=== PATIENT | male | born 1985 | race African-American/Black ===

== ENCOUNTER 2018-12-30 11:52 | Emergency (ER) | payer BC, OTHER ==
[2018-12-30] MEDS ORDERED: ASPIRIN 81 MG CHEWABLE TABLET ONE (12:54)
[2018-12-30] MEDS ORDERED: LORAZEPAM 1 MG TABLET ONE (12:55)
[2018-12-30 13:08] LABS: Hematocrit 42.7 % (39.6-49.0); Lymphocytes % 32.1 % (15.3-44.8); MPV 8.9 fL (7.6-11.3); RBC Red Blood Cell Count 4.81 M/uL (4.33-5.43)
[2018-12-30 13:21] LABS: Protime INR 0.96
[2018-12-30 13:33] LABS: ALT/SGPT 28 U/L (12-78); AST/SGOT 14 U/L (15-37); Albumin 4.2 g/dL (3.4-5.0); Alkaline Phosphatase 74 U/L (45-117); BUN Blood Urea Nitrogen 13 mg/dL (7-18); Bicarbonate 29 mmol/L (21-32); Bilirubin Direct 0.1 mg/dL (0-0.2); Bilirubin Total 0.6 mg/dL (0.2-1.0); Glucose Level 79 mg/dL (74-106); NT PRO-BNP 19 pg/mL (<125); Potassium 3.9 mmol/L (3.5-5.1); Protein, Total 7.7 g/dL (6.4-8.2); Sodium Level 141 mmol/L (136-145); Troponin (Emerg Dept Use Only) < 0.02 ng/mL (0.0-0.045)
--- NOTE | 2018-12-30 15:24 | RAD REPORT ---
EXAM DESCRIPTION: Subha Single View12/30/2018 12:37 pm CLINICAL HISTORY: Chest pain COMPARISON: None FINDINGS: The lungs appear clear of acute infiltrate. The heart is normal size Postsurgical changes involve the chest. IMPRESSION: No acute abnormalities displayed
--- NOTE | 2018-12-30 15:45 | ER ---
Nurse's Notes [facility] Name: Steve Maher Jr Age: 33 yrs Sex: Male : 1985 Arrival Date: 12/30/2018 Time: 11:56 Bed 16 Private MD: Diagnosis: Chest pain, unspecified Presentation: 12/30 12:15 Presenting complaint: Patient states: I have been having chest pain that radiates to ca1 the back for 2 days now. 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 When I was 21 during a routine check up they found out that I had a defect, an artery that was out of place. Denies N/V. Transition of care: patient was not received from another setting of care. Onset of symptoms was December 28, 2018. Risk Assessment: Do you want to hurt yourself or someone else? Patient reports no desire to harm self or others. Initial Sepsis Screen: Does the patient meet any 2 criteria? HR > 90 bpm. Does the patient have a suspected source of infection? No. Patient's initial sepsis screen is negative. Care prior to arrival: None. 12:15 Method Of Arrival: Wheelchair ca1 12:15 Acuity: VERÓNICA 3 ca1 Triage Assessment: 12:45 General: Appears in no apparent distress. comfortable, Behavior is calm, cooperative, ca1 appropriate for age. Pain: Complains of pain in mid-sternal area Pain radiates to back Pain currently is 3 out of 10 on a pain scale. at worst was 7 out of 10 on a pain scale. Quality of pain is described as tightness Pain began 2-3 days ago. Is intermittent. Cardiovascular: Heart tones S1 S2 present Capillary refill < 3 seconds Patient's skin is warm and dry. Pulses Rhythm is sinus rhythm. Historical: - Allergies: 12:45 PENICILLINS; ca1 - Home Meds: 12:45 None [Active]; ca1 - PMHx: 12:45 None; ca1 - PSHx: 12:45 CABG; ca1 - Immunization history:: Adult Immunizations not up to date. - Social history:: Smoking status: Patient uses tobacco products, denies chronic smoking, but will smoke occasionally. - Ebola Screening: : Patient negative for fever greater than or equal to 101.5 degrees Fahrenheit, and additional compatible Ebola Virus Disease symptoms Patient denies exposure to infectious person Patient denies travel to an Ebola-affected area in the 21 days before illness onset No symptoms or risks identified at this time. Screenin:47 Abuse screen: Denies threats or abuse. Denies injuries from another. Nutritional ca1 screening: No deficits noted. Tuberculosis screening: No symptoms or risk factors identified. Fall Risk IV access (20 points). Assessment: 12:20 General: Appears in no apparent distress. comfortable, Behavior is calm, cooperative, ca1 appropriate for age. Pain: Complains of pain in mid-sternal area and chest Pain radiates to back Pain currently is 3 out of 10 on a pain scale. at worst was 7 out of 10 on a pain scale. Quality of pain is described as tightness Pain began 2-3 days ago. Is intermittent. Neuro: Level of Consciousness is awake, alert, obeys commands, Oriented to person, place, time, situation, Appropriate for age. Cardiovascular: Heart tones S1 S2 present Capillary refill < 3 seconds Patient's skin is warm and dry. Pulses Rhythm is sinus rhythm. Respiratory: Airway is patent Respiratory effort is even, unlabored, Respiratory pattern is regular, symmetrical, Breath sounds are clear bilaterally. GI: Abdomen is flat, non-distended, Bowel sounds present X 4 quads. Abd is soft and non tender X 4 quads. Patient currently denies nausea, vomiting. : No deficits noted. No signs and/or symptoms were reported regarding the genitourinary system. EENT: No deficits noted. No signs and/or symptoms were reported regarding the EENT system. Derm: Skin is intact, is healthy with good turgor, Skin is pink, warm \T\ dry. Musculoskeletal: Circulation, motion, and sensation intact. Capillary refill < 3 seconds, Range of motion: intact in all extremities. 13:28 Reassessment: Patient appears in no apparent distress at this time. Patient and/or ca1 family updated on plan of care and expected duration. Pain level reassessed. Patient is alert, oriented x 3, equal unlabored respirations, skin warm/dry/pink. 14:10 Reassessment: Patient appears in no apparent distress at this time. Patient is alert, ca1 oriented x 3, equal unlabored respirations, skin warm/dry/pink. 15:05 Reassessment: Patient appears in no apparent distress at this time. Patient and/or ca1 family updated on plan of care and expected duration. Pain level reassessed. Patient is alert, oriented x 3, equal unlabored respirations, skin warm/dry/pink. Repeat EKG and Trop done. Awaiting result. 15:44 Reassessment: Patient appears in no apparent distress at this time. Patient is alert, ca1 oriented x 3, equal unlabored respirations, skin warm/dry/pink. Vital Signs: 12:25 BP 138 / 84; Pulse 66; Resp 16; Temp 98.3(TE); Pulse Ox 100% ; lt1 12:45 Weight 97.52 kg (R); Height 6 ft. 5 in. (195.58 cm) (R); Pain 7/10; ca1 13:00 BP 151 / 85; Pulse 75; Resp 14 S; Pulse Ox 98% on R/A; ca1 13:30 BP 151 / 102; Pulse 70; Resp 19 S; Pulse Ox 100% on R/A; ca1 14:10 BP 128 / 81; Pulse 61; Resp 17 S; Pulse Ox 100% on R/A; ca1 15:05 BP 135 / 82; Pulse 60; Resp 55; Temp 98(O); Pulse Ox 100% ; ca1 15:44 BP 129 / 85; Pulse 62; Resp 15 S; Pulse Ox 100% on R/A; ca1 12:45 Body Mass Index 25.50 (97.52 kg, 195.58 cm) ca1 ED Course: 11:56 Patient arrived in ED. mr 12:01 [facility] Hansen [facility]-C [facility] snw 12:01 Hugh Mendes MD is Attending Physician. snw 12:24 Ghislaine Roy, MIGUELITO is Primary Nurse. ca1 12:39 XRAY Chest (1 view) In Process Unspecified. EDMS 12:44 Triage completed. ca1 12:45 Arm band placed on right wrist. EKG completed in triage. Results shown to MD. ca1 12:47 Patient has correct armband on for positive identification. Placed in gown. Bed in low ca1 position. Call light in reach. Side rails up X 1. monitoring coordinator on. Pulse ox on. NIBP on. Warm blanket given. 12:47 No provider procedures requiring assistance completed. Missed attempt(s): 20 gauge in ca1 left antecubital area. Bleeding controlled, band aid applied, catheter tip intact. Patient maintains SpO2 saturation greater than 95% on room air. 12:54 Initial lab(s) drawn, by me, sent to lab. Inserted saline lock: 22 gauge in right lt1 antecubital area, using aseptic technique. 16:01 IV discontinued, intact, bleeding controlled, No redness/swelling at site. Pressure ca1 dressing applied. Administered Medications: 12:25 Drug: Aspirin Chewable Tablet 324 mg Route: PO; ca1 14:19 Follow up: Response: No adverse reaction; Pain is decreased ca1 12:25 Drug: Ativan 1 mg Route: PO; ca1 14:20 Follow up: Response: No adverse reaction ca1 Outcome: 15:44 Discharge ordered by MD. almazan 16:01 Discharged to home ambulatory. ca1 16:01 Condition: stable 16:01 Discharge instructions given to patient, Instructed on discharge instructions, follow up and referral plans. medication usage, Demonstrated understanding of instructions, follow-up care, medications, Prescriptions given X 1. 16:01 Patient left the ED. ca1 Signatures: Dispatcher [employer] EDMS Yana Hansen, BR[employer] BUSINESS OPERATIONS COORDINATOR-Patito Puente Cheryl, RN RN ca1 Yessenia Olmstead lt1 Corrections: (The following items were deleted from the chart) 15:42 15:05 BP 135 / 82; Pulse 13bpm; Resp 55bpm; Pulse Ox 100%; Temp 98F Oral; ca1 ca1
--- NOTE | 2018-12-30 15:46 | EDPHYS ---
Physician Documentation [facility] Name: Steve Maher Jr Age: 33 yrs Sex: Male : 1985 Arrival Date: 12/30/2018 Time: 11:56 Bed 16 Private MD: MERLIN Physician Hugh Mendes HPI: 12/30 12:50 This 33 yrs old Black Male presents to ER via Wheelchair with complaints of Chest Pain. snw 12:50 The patient or guardian reports chest pain that is located primarily in the anterior snw chest wall, bilaterally. The pain does not radiate. Associated signs and symptoms: The patient has no apparent associated signs or symptoms. The chest pain is described as squeezing. Duration: The patient or guardian reports multiple episodes. Modifying factors: The symptoms are alleviated by nothing. the symptoms are aggravated by emotionally stressful situations. Severity of pain: At its worst the pain was moderate. It is unknown whether or not the patient has had similar symptoms in the past. sees PCP yearly in [place]. Historical: - Allergies: 12:45 PENICILLINS; ca1 - Home Meds: 12:45 None [Active]; ca1 - PMHx: 12:45 None; ca1 - PSHx: 12:45 CABG; ca1 - Immunization history:: Adult Immunizations not up to date. - Social history:: Smoking status: Patient uses tobacco products, denies chronic smoking, but will smoke occasionally. - Ebola Screening: : Patient negative for fever greater than or equal to 101.5 degrees Fahrenheit, and additional compatible Ebola Virus Disease symptoms Patient denies exposure to infectious person Patient denies travel to an Ebola-affected area in the 21 days before illness onset No symptoms or risks identified at this time. ROS: 12:22 Eyes: Negative for injury, pain, redness, and discharge, ENT: Negative for injury, snw pain, and discharge, Neck: Negative for injury, pain, and swelling, Respiratory: Negative for shortness of breath, cough, wheezing, and pleuritic chest pain, Abdomen/GI: Negative for abdominal pain, nausea, vomiting, diarrhea, and constipation, Back: Negative for injury and pain, : Negative for injury, bleeding, discharge, and swelling, MS/Extremity: Negative for injury and deformity, Skin: Negative for injury, rash, and discoloration, Neuro: Negative for headache, weakness, numbness, tingling, and seizure. 12:22 Constitutional: Positive for increased stress. 12:22 Cardiovascular: Positive for chest pain, of the chest, intermittent, comes and goes x 3 days. Open heart surg 2009 to bypass artery. Exam: 12:22 Constitutional: This is a well developed, well nourished patient who is awake, alert, snw and in no acute distress. Head/Face: Normocephalic, atraumatic. Eyes: Pupils equal round and reactive to light, extra-ocular motions intact. Lids and lashes normal. Conjunctiva and sclera are non-icteric and not injected. Cornea within normal limits. Periorbital areas with no swelling, redness, or edema. ENT: Nares patent. No nasal discharge, no septal abnormalities noted. Tympanic membranes are normal and external auditory canals are clear. Oropharynx with no redness, swelling, or masses, exudates, or evidence of obstruction, uvula midline. Mucous membranes moist. Neck: Trachea midline, no thyromegaly or masses palpated, and no cervical lymphadenopathy. Supple, full range of motion without nuchal rigidity, or vertebral point tenderness. No Meningismus. Chest/axilla: Normal chest wall appearance and motion. Nontender with no deformity. No lesions are appreciated. Cardiovascular: Regular rate and rhythm with a normal S1 and S2. No gallops, murmurs, or rubs. Normal PMI, no JVD. No pulse deficits. Respiratory: Lungs have equal breath sounds bilaterally, clear to auscultation and percussion. No rales, rhonchi or wheezes noted. No increased work of breathing, no retractions or nasal flaring. Abdomen/GI: Soft, non-tender, with normal bowel sounds. No distension or tympany. No guarding or rebound. No evidence of tenderness throughout. Back: No spinal tenderness. No costovertebral tenderness. Full range of motion. Skin: Warm, dry with normal turgor. Normal color with no rashes, no lesions, and no evidence of cellulitis. MS/ Extremity: Pulses equal, no cyanosis. Neurovascular intact. Full, normal range of motion. Neuro: Awake and alert, GCS 15, oriented to person, place, time, and situation. Cranial nerves II-XII grossly intact. Motor strength 5/5 in all extremities. Sensory grossly intact. Cerebellar exam normal. Normal gait. Psych: Awake, alert, with orientation to person, place and time. Behavior, mood, and affect are within normal limits. Vital Signs: 12:25 BP 138 / 84; Pulse 66; Resp 16; Temp 98.3(TE); Pulse Ox 100% ; lt1 12:45 Weight 97.52 kg (R); Height 6 ft. 5 in. (195.58 cm) (R); Pain 7/10; ca1 13:00 BP 151 / 85; Pulse 75; Resp 14 S; Pulse Ox 98% on R/A; ca1 13:30 BP 151 / 102; Pulse 70; Resp 19 S; Pulse Ox 100% on R/A; ca1 14:10 BP 128 / 81; Pulse 61; Resp 17 S; Pulse Ox 100% on R/A; ca1 15:05 BP 135 / 82; Pulse 60; Resp 55; Temp 98(O); Pulse Ox 100% ; ca1 15:44 BP 129 / 85; Pulse 62; Resp 15 S; Pulse Ox 100% on R/A; ca1 12:45 Body Mass Index 25.50 (97.52 kg, 195.58 cm) ca1 MDM: 12:13 Patient medically screened. monse 15:41 DAVID Risk Score: 1 - Recent [<24hrs] Severe Angina, TOTAL SCORE = 1. Data reviewed: snw vital signs, nurses notes. Data interpreted: Pulse oximetry: on room air is 100 %. Interpretation: normal. Counseling: I had a detailed discussion with the patient and/or guardian regarding: the historical points, exam findings, and any diagnostic results supporting the discharge/admit diagnosis, the presence of at least one elevated blood pressure reading (>120/80) during this emergency department visit, lab results, radiology results, the need for outpatient follow up, to return to the emergency department if symptoms worsen or persist or if there are any questions or concerns that arise at home. Special discussion: Based on the patient's history, exam, and Dx evaluation, there is no indication for emergent intervention or inpatient Tx. It is understood by the patient/guardian that if the Sx's persist or worsen they need to return immediately for re-evaluation. I have referred the patient to see his PCP for further evaluation of high blood pressure. Based on the history and exam findings, there is no indication for further emergent testing or inpatient evaluation. I discussed with the patient/guardian the need to see the edger technician for further evaluation of the symptoms. I discussed with the patient/guardian the need to see the primary care provider for further evaluation of the symptoms. 12/30 12:18 Order name: Basic Metabolic Panel; Complete Time: 13:48 w 12/30 12:18 Order name: CBC with Diff; Complete Time: 13:48 w 12/30 12:18 Order name: LFT's; Complete Time: 13:48 w 12/30 12:18 Order name: Magnesium; Complete Time: 13:48 w 12/30 12:18 Order name: NT PRO-BNP; Complete Time: 13:48 w 12/30 12:18 Order name: PT-INR; Complete Time: 13:48 w 12/30 12:18 Order name: Troponin (emerg Dept Use Only); Complete Time: 13:48 w 12/30 12:18 Order name: XRAY Chest (1 view); Complete Time: 15:27 w 12/30 12:18 Order name: EKG; Complete Time: 12:19 12/30 15:16 Order name: Troponin (Emerg Dept Use Only); Complete Time: 15:32 EDMS 12/30 15:21 Order name: EKG; Complete Time: 15:21 ca1 12/30 12:18 Order name: Cardiac monitoring; Complete Time: 12:26 12/30 12:18 Order name: EKG - Nurse/Tech; Complete Time: 12:26 12/30 12:18 Order name: IV Saline Lock; Complete Time: 12:55 12/30 12:18 Order name: Labs collected and sent; Complete Time: 12:55 12/30 12:18 Order name: O2 Per Protocol; Complete Time: 12:26 w 12/30 12:18 Order name: O2 Sat Monitoring; Complete Time: 12:12/30 14:18 Order name: Repeat Cardiac Enzymes at: 1500 and repeat EKG at that time too please; snw Complete Time: 15:20 Administered Medications: 12:25 Drug: Aspirin Chewable Tablet 324 mg Route: PO; ca1 14:19 Follow up: Response: No adverse reaction; Pain is decreased ca1 12:25 Drug: Ativan 1 mg Route: PO; ca1 14:20 Follow up: Response: No adverse reaction ca1 Disposition: 12/30/18 15:44 Discharged to Home. Impression: Chest pain, unspecified. - Condition is Stable. - Discharge Instructions: Nonspecific Chest Pain, Hypertension, Stress and Stress Management, Aspirin and Your Heart. - Prescriptions for Protonix 40 mg Oral Tablet - take 1 tablet by ORAL route once daily; 30 tablet. - Work release form, Medication Reconciliation Form, Thank You Letter, Antibiotic Education, Prescription Opioid Use form. - Follow up: Private Physician; When: 2 - 3 days; Reason: Recheck today's complaints, Continuance of care, Re-evaluation by your physician. Follow up: Emergency Department; When: As needed; Reason: Worsening of condition. Addendum: 01/01/2019 09:12 Co-signature as Attending Physician, Hugh Mendes MD I agree with the assessment and c stewart plan of care. Signatures: Dispatcher [employer] [facility] Hugh Mendes MD MD cha Therrien, Shelly, LOCKER ROOM MANAGER-C LOCKER ROOM MANAGER-Cs[place] Ghislaine Roy RN RN ca1 Corrections: (The following items were deleted from the chart) 12/30 15:16 14:53 TROPONIN I+[id number].BRZ ordered. [facility] 16:01 15:44 12/30/2018 15:44 Discharged to Home. Impression: Chest pain, unspecified. ca1 Condition is Stable. Discharge Instructions: Nonspecific Chest Pain, Hypertension, Stress and Stress Management, Aspirin and Your Heart. Prescriptions for Protonix 40 mg Oral Tablet - take 1 tablet by ORAL route once daily; 30 tablet. and Forms are Work release form, Medication Reconciliation Form, Thank You Letter, Antibiotic Education, Prescription Opioid Use. Follow up: Private Physician; When: 2 - 3 days; Reason: Recheck today's complaints, Continuance of care, Re-evaluation by your physician. Follow up: Emergency Department; When: As needed; Reason: Worsening of condition. snw
--- NOTE | 2018-12-31 08:07 | EKG ---
Test Date: 2018-12-30 Test Time: 14:56:54 Rug Inspector: YEIMI MEASUREMENT RESULTS: Intervals: Rate: 56 RI: 192 QRSD: 102 QT: 386 QTc: 372 [place]: P: 79 RI: 192 QRS: 70 T: 63 INTERPRETIVE STATEMENTS: Sinus bradycardia ST elevation, consider early repolarization, pericarditis, or injury Abnormal ECG Compared to ECG 12/30/2018 12:17:04 Sinus rhythm no longer present ST (T wave) deviation still present Electronically Signed On 12-31-18 08:06:51 CDT by Gray Wick
--- NOTE | 2018-12-31 08:08 | EKG ---
Test Date: 2018-12-30 Test Time: 12:17:04 Accounts Clerk: LINNEA MEASUREMENT RESULTS: Intervals: Rate: 68 MD: 182 QRSD: 98 QT: 336 QTc: 357 [place]: P: 79 MD: 182 QRS: 72 T: 64 INTERPRETIVE STATEMENTS: Normal sinus rhythm ST elevation, consider early repolarization, pericarditis, or injury Nonspecific ST and T wave abnormality Abnormal ECG No previous ECG available for comparison Electronically Signed On 12-31-18 08:07:01 CDT by Gray Wick
--- NOTE | 2019-01-01 08:39 | EKG ---
Test Date: 2018-12-30 Test Time: 14:57:29 Public Health Engineer: YEIMI MEASUREMENT RESULTS: Intervals: Rate: 62 RI: 182 QRSD: 102 QT: 386 QTc: [address] [place]: P: 79 RI: 182 QRS: 69 T: 61 INTERPRETIVE STATEMENTS: Normal sinus rhythm ST elevation, consider early repolarization, pericarditis, or injury Nonspecific ST and T wave abnormality Abnormal ECG Compared to ECG 12/30/2018 14:56:54 Sinus bradycardia no longer present ST (T wave) deviation still present Electronically Signed On 01-01-19 08:36:32 CDT by Gray Wick
== END 2018-12-30 16:01 | disposition home or self-care (01) ==
LOC: ER 11:52
DX: R07.9 Chest pain, unspecified (principal); Z88.0 Allergy status to penicillin; Z72.0 Tobacco use
CPT/HCPCS: 36415; 71045; 80048; 80076; 83735; 83880; 84484; 85025; 85610; 93005; 99285